=== PATIENT | female | born 1945 | race Hispanic/Latino ===

== ENCOUNTER 2019-06-05 05:15 | Observation (INO) | payer MEDICARE ==
[2019-06-04 14:18] LABS: BASOPHILS % 0.4 % (0.0-1.0); EOSINOPHILS # (AUTO) 0.4 (0.0-0.4); HEMATOCRIT 39.3 % (34.2-44.1); HEMOGLOBIN 12.7 g/dL (12.0-16.0); LYMPHOCYTES # (AUTO) 2.4 (1.0-3.2); LYMPHOCYTES % 24.4 % (18.0-39.1); MEAN CORPUSCULAR HGB CONC 32.3 g/dL (31-35); MEAN CORPUSCULAR VOLUME 86.8 fL (81-99); MONOCYTES # (AUTO) 0.6 (0.2-0.8); MONOCYTES % 5.9 % (4.4-11.3); NEUTROPHILS # (AUTO) 6.4 (2.1-6.9); NEUTROPHILS % 64.8 % (38.7-80.0); PLATELET COUNT 267 x10e3/uL (140-360); RED BLOOD COUNT 4.53 x10e6/uL (3.6-5.1); RED CELL DISTRIBUTION WIDTH 13.9 % (11.7-14.4)
[2019-06-04 14:29] LABS: INR 0.93
[2019-06-04 14:30] LABS: PARTIAL THROMBOPLASTIN TIME 33.1 seconds (23.8-35.5)
[2019-06-04 14:36] LABS: ANION GAP 14.9 mmol/L (8-16); CALCIUM 9.4 mg/dL (8.4-10.2); CREATININE, SERUM 1.13 mg/dL (0.57-1.11); POTASSIUM 4.9 mmol/L (3.5-5.1)
--- NOTE | 2019-06-04 15:31 | Diagnostic Imaging Report ---
EXAM: CHEST 2 VIEWS DATE: 06/04/2019 1:02 PM INDICATION: Cervical spondylosis COMPARISON: None FINDINGS: The trachea is midline. The lungs are symmetrically expanded without evidence for large focal consolidation, pneumothorax, or significant pleural effusion. The cardiomediastinal silhouette and pulmonary vasculature are within normal limits. No acute osseous abnormality is identified. The surrounding soft tissues are unremarkable. IMPRESSION: No acute cardiopulmonary process identified. Signed by: Dr. Mukesh Crowley MD on 06/04/2019 3:27 PM
[~2019-06-05] VITALS: Ht 167.6 cm; Wt 103.0 kg
[~2019-06-05 05:15] MED LIST: GLIMEPIRIDE2 MG PO; LANTUS 3ML100 UNITS/ SC; LOSARTAN HCTZ PO; METOPROLOL PO
[2019-06-05] MEDS ORDERED: CEFAZOLIN SOD 1 GM/NS 50ML 50 ML IV ONE (06:16)
--- OUTSIDE RECORDS SUMMARY | 2019-06-05 06:32 | XMS REPORT ---
Author Author [facility] Address Unknown Phone Unavailable Care Team Providers Care Garment Cutter Name Role Phone ROLANDO DELGADO Unavailable Unavailable Problems This patient has no known problems. Allergies, Adverse Reactions, Alerts This patient has no known allergies or adverse reactions. Medications This patient has no known medications. Results Test Description Test Time Test Comments Text Results Atomic Results Result Comments CHEST 2 VIEWS 2019-06-04 15:27:00 [place] [address] Patient Name: JERRELL CASANOVA MR #: [id number] : 1945 Age/Sex: 73/F Req #: [id number] Adm Physician: Ordered by: ROLANDO DELGADO MD Report #: [id number] Location: OR Room/Bed: Procedure: [id number] DX/CHEST 2 VIEWS Exam Date: Exam Time: REPORT STATUS: Signed EXAM: CHEST 2 VIEWS DATE: 06/04/2019 1:02 PM INDICATION: Cervical spondylosis COMPARISON: None FINDINGS: The trachea is midline. The lungs are symmetrically expanded without evidence for large focal consolidation, pneumothorax, or significant pleural effusion. The cardiomediastinal silhouette and pulmonary vasculature are within normal limits. No acute osseous abnormality is identified. The surrounding soft tissues are unremarkable. IMPRESSION: No acute cardiopulmonary process identified. Signed by: Dr. Mukesh Crowley MD on 06/04/2019 3:27 PM Dictated By: MUKESH CROWLEY MD [id number] Transcribed By: YASMANY on 06/04/19 1527 COPY TO: ROLANDO DELGADO MD
[2019-06-05] MEDS ORDERED: BUPIVACAINE 0.5%/EPI 30 ML SDV INJ ONE (06:33)
[2019-06-05] MEDS ORDERED: THROMBIN FOR SOLN 5,000 UNIT VIAL ONE (06:33)
[2019-06-05] MEDS ORDERED: BACITRACIN 50,000 UNIT VIAL ONE (06:33)
[2019-06-05] MEDS ORDERED: BUPIVACAINE HCL 0.5% INJ 30 ML VIAL INJ ONE (06:34)
[2019-06-05] MEDS ORDERED: ACETAMINOPHEN 1000 MG/100 ML 100 ML IV ONE (07:02)
[2019-06-05] MEDS ORDERED: IBUPROFEN 800 MG/200 ML IV ONE (07:02)
[2019-06-05] MEDS ORDERED: LIDOCAINE HCL (LTA) 4 ML SOLN ONE (07:02)
--- NOTE | 2019-06-05 07:20 | NUR ---
SPIRITUAL CARE - Pre-Surgery Assessment: Pt in bed. Pt's daughter at bedside. Pt reported supportive attention from family and friends. Intervention: I provided pastoral presence, hospitality, and sympathetic listening. I acquainted pt with availability of software analyst while hospitalized. Outcome: Pt expressed appreciation for visit. No need for follow up indicated at this time. CHARLEEN Lamaslain Spiritual Care Department O: [phone] Pager: [phone] ([phone] number calling from)
[2019-06-05] MEDS ORDERED: DEXTROSE 50% SYRINGE 50 ML IV PRN (09:00)
[2019-06-05] MEDS ORDERED: CARISOPRODOL 350 MG TAB PO PRN (09:00)
[2019-06-05] MEDS ORDERED: CEPACOL SORE THROAT LOZENGES PO PRN (09:00)
[2019-06-05] MEDS ORDERED: ACETAMINOPHEN 325 MG TAB PO PRN (09:00)
[2019-06-05] MEDS ORDERED: MAGNESIUM/ALUMINUM/SIMETHICONE 30 ML UDC PO PRN (09:00)
[2019-06-05] MEDS ORDERED: ONDANSETRON HCL INJ 2MG/ML 2ML 2 MG/ML VIAL IV PRN (09:00)
[2019-06-05] MEDS ORDERED: NON-FORMULARY MEDICATION ([Metoprolol] 50 MG) PO SCH (09:00)
[2019-06-05] MEDS ORDERED: OXYCODONE/ACETAMINOPHEN 5-325 1 EACH TABLET PO PRN (09:00)
[2019-06-05] MEDS ORDERED: HYDROMORPHONE 2MG/ML 2 MG/ML ML IV PRN ×2 (09:00)
[2019-06-05] MEDS ORDERED: PROMETHAZINE HCL (IM) 25 MG/ML VIAL IM PRN (09:00)
[2019-06-05] MEDS ORDERED: MORPHINE SULFATE 5 MG/ML VIAL IM PRN (09:00)
[2019-06-05] MEDS ORDERED: ZOLPIDEM TARTRATE 5 MG TAB PO PRN (09:00)
--- NOTE | 2019-06-05 10:09 | NUR ---
Recvd patient from PACU, AAOx3, Assisted her to bed, neck collar in place, surgical dressing on rt hand anterior neck is intact, not in any distress, keep monitoring , hr son at bed side
[2019-06-05] MEDS ORDERED: MORPHINE SULFATE INJ 4 MG/ML INJ 1ML IM PRN (10:15)
[2019-06-05 10:16] VITALS: BP 163/79
[2019-06-05 10:17] VITALS: BP 163/79
[2019-06-05] MEDS: LOSARTAN POTASSIUM 100 MG TAB PO SCH (10:56)
[2019-06-05] MEDS: GLIMEPIRIDE 2 MG TAB PO SCH ×2 (10:56→18:43)
[2019-06-05] MEDS: METOPROLOL TARTRATE 50 MG TAB PO SCH (10:57)
[2019-06-05 12:55] VITALS: BP 140/64
--- NOTE | 2019-06-05 14:35 | NUR ---
Assisted patient to use restroom, sitting up in recliner this time, family at bed side
[2019-06-05] MEDS: CEFAZOLIN SOD 1 GM/NS 50ML 50 ML IV SCH ×2 (15:14→21:43)
--- NOTE | 2019-06-05 15:22 | NUR ---
Order received for home health, spoke to patient and family, they are possibly looking for provider services as well. Booklet with [employer] given to family, also referral sent to Home care providers per patient's choice d/t need for some physical therapy at home as well.
--- NOTE | 2019-06-05 15:32 | Operative Report ---
DATE OF PROCEDURE: 06/05/2019 SURGEON: Toy Hoyos MD PREOPERATIVE DIAGNOSES: C5-C6 spondylosis with myelopathy and right carpal tunnel syndrome. POSTOPERATIVE DIAGNOSES: C5-C6 spondylosis with myelopathy and right carpal tunnel syndrome. PROCEDURES: 1. C5-C6 anterior cervical diskectomy and microsurgical osteophyte resection and allograft fusion, 33118. 2. Preparation of MTF tricortical allograft, 65411. 3. C5-C6 anterior cervical plating with Synthes ZPN plate, 86810. 4. Right carpal tunnel release. ANESTHESIA: General. INDICATIONS: The patient is a 73-year-old woman, who presents with cervical spondylosis with myelopathy and right-sided cord compression and superimposed severe right carpal tunnel syndrome. She was taken to the operating room for C5-C6 ACDF and right carpal tunnel release. DESCRIPTION OF PROCEDURE: After induction of general anesthesia, the patient was placed on the operating table in supine position. The right side of the neck was prepped and draped in sterile fashion. The fluoroscopic C-arm was positioned in cross-table lateral orientation. A transverse incision was created on the right side of neck, superimposed on the C5-C6 disk space as determined by fluoroscopy. The platysma was divided in line with the incision. A subplatysmal dissection was carried out and avascular plane and dissection was developed medially. Sternocleidomastoid muscle was followed medial to the carotid sheath to the anterior border of cervical spine. The deep cervical fascia was opened. The esophagus was retracted to the left. The attachments of longus colli muscles to the anterolateral aspects of vertebral bodies of C5 and C6 were divided. The anterior longitudinal ligament was resected. [place] posts were inserted into C5 and C6. [place] distractor was used to distract the disk space. The anterior annulus of the disk was incised with a #11 blade. The contents of the disks were thoroughly evacuated with angled curettes and pituitary rongeurs. The posterior osteophytes were meticulously drilled with a 2 mm cutting bur on a high-speed drill until they were completely removed. The posterior annulus of the disk, herniated disk material, and the posterior longitudinal ligament were resected via layer by layer until the dura was fully exposed and decompressed. The medial aspects of the uncinate processes were resected bilaterally to further expose any compressed origins of the corresponding nerve roots. After satisfactory decompression had been achieved, the endplates were prepared for fusion. The disk space was sized and found to be 8 mm in height. A piece of corticocancellous MTF allograft measuring 8 mm in thickness was selected and was prepared in saline and loaded onto a Synthes ZPN plate. The construct was inserted into the C5-C6 disk space under distraction and fluoroscopic guidance. The distraction was released and the distraction posts were removed. The plate was then screwed to the endplates of C5 and C6 with two pairs of 14 mm screws. All screws were locked and excellent construct was obtained. The wound was copiously irrigated with bacitracin solution. Meticulous hemostasis was secured. The platysma was closed with 3-0 Vicryl sutures. The skin was closed with 4-0 Monocryl sutures in subcuticular fashion. Steri-Strips and dressing were applied. The drapes were removed. The right arm was abducted over a hand table. The right hand, wrist and forearm were prepped and draped circumferentially in sterile fashion. A tourniquet was inflated over the upper arm to 250 mmHg. A small midline incision was created over the median and palmar crease of the hand just distal to the distal flexor crease of the wrist. The subcutaneous fat was divided. The transverse carpal ligament was identified and incised with a #15 C blade until the underlying median nerve came into view. As the mri assistant retracted the skin edges, the transverse carpal ligament was divided proximally and distally until the full length of ligament had been divided and the full length of the median nerve was decompressed within the carpal tunnel. The point of maximal compression of nerve appeared to be 2 cm distal to the distal flexor crease of the wrist where the ligament was at its thickest. More distally, the recurrent motor branch of the nerve was preserved within its fat pad. The wound was copiously irrigated with bacitracin solution. Meticulous hemostasis was secured. Retractor was removed. The subcutaneous layer was closed with 3-0 Vicryl suture. The skin was closed with 3-0 nylon suture in horizontal mattress fashion. The skin was infiltrated with plain lidocaine. The hand was wrapped after tourniquet had been deflated. The patient was awakened, extubated, and taken to the postanesthesia care unit in stable condition. No intraoperative complications were encountered. Estimated blood loss was minimal. Toy Hoyos MD PP/PAYAM /[id number]
[2019-06-05] MEDS: LACTATED RINGER'S 1,000 ML IV SCH (15:52)
--- NOTE | 2019-06-05 16:05 | NUR ---
Notified Dr Hoyos patient's BS 251, New order recvd to resume her home insulin which she taking Lanctus 50units in evening
[2019-06-05 16:27] VITALS: BP 157/68
[2019-06-05] MEDS ORDERED: INSULIN GLARGINE 100 UNITS/ML VIAL SQ SCH ×2 (17:00→21:00)
[2019-06-05] MEDS ORDERED: NON-FORMULARY MEDICATION (Insulin Glargine (Lantus 3ML Pen) 50 UNITS) SC SCH (17:00)
[2019-06-05] MEDS ORDERED: FENTANYL CITRATE/PF 100MCG/2 ML INJ ONE (18:39)
--- NOTE | 2019-06-05 19:03 | NUR ---
Received bedside report from day nurse. Patient resting in bed, no s/s of distress or c/o pain at this time. All safety measures in place. Family at bedside. Will continue to monitor.
[2019-06-05] MEDS ORDERED: NEOSTIGMINE 1 MG/ML 10ML VIAL ONE (19:31)
[2019-06-05] MEDS ORDERED: ONDANSETRON HCL INJ 2MG/ML 2ML 2 MG/ML VIAL ONE (19:31)
[2019-06-05] MEDS ORDERED: GLYCOPYRROLATE INJ 0.2 MG/ML VIAL ONE (19:31)
[2019-06-05] MEDS ORDERED: SEVOFLURANE INHAL SOLN 250 ML PEN BTL ONE (19:31)
[2019-06-05] MEDS ORDERED: PROPOFOL IV EMULSION 10 MG/ML 20 ML VIAL ONE (19:31)
[2019-06-05] MEDS ORDERED: DEXAMETHASONE SOD PHOS INJ 4 MG/ML VIAL ONE (19:31)
[2019-06-05] MEDS ORDERED: LIDOCAINE HCL 2% LOCAL INJ 5 ML SDV VIAL INJ ONE (19:31)
[2019-06-05] MEDS ORDERED: LIDOCAINE HCL 2% JELLY 5 ML TUBE ONE (19:31)
[2019-06-05] MEDS ORDERED: ROCURONIUM BROMIDE 10 MG/ML 5ML VIAL ONE (19:31)
[2019-06-05 20:00] VITALS: BP 168/77
[2019-06-05 21:46] VITALS: BP 168/77
[2019-06-06] VITALS: BP 168/74
[2019-06-06] MEDS: LACTATED RINGER'S 1,000 ML IV SCH (02:04)
[2019-06-06 04:00] VITALS: BP 154/64
[2019-06-06] MEDS: CEFAZOLIN SOD 1 GM/NS 50ML 50 ML IV SCH (05:28)
--- NOTE | 2019-06-06 06:09 | NUR ---
Patient leaving unit via wheelchair for x-ray. In stable condition, no s/s of distress at this time.
--- NOTE | 2019-06-06 06:27 | NUR ---
Patient returned to unit. In stable condition, no s/s of distress at this time. All safety measures in place. Family at bedside. Will continue to monitor.
[2019-06-06 06:31] VITALS: BP 142/68
--- NOTE | 2019-06-06 06:43 | Diagnostic Imaging Report ---
Exam: Cervical spine 2 views History: Neck pain Comparison: None. Findings: No fracture. Anterior cervical discectomy and fusion of C5-C6 with low profile interbody cage. Degenerative disc disease with posterior disc osteophyte complex at C4-C5. Impression: Anterior cervical discectomy and low profile fusion of C5-C6 Signed by: Dr. Josesito Spear M.D. on 06/06/2019 6:39 AM
--- NOTE | 2019-06-06 07:08 | NUR ---
Bedside report given to oncoming nurse. Patient resting in bed, no s/s of distress or c/o pain at this time. All safety measures in place.
[2019-06-06 08:12] VITALS: BP 165/75
[2019-06-06 08:16] VITALS: BP 165/75
[2019-06-06] MEDS: LOSARTAN POTASSIUM 100 MG TAB PO SCH (08:26)
[2019-06-06] MEDS: GLIMEPIRIDE 2 MG TAB PO SCH (08:26)
[2019-06-06] MEDS: METOPROLOL TARTRATE 50 MG TAB PO SCH (08:26)
[2019-06-06] MEDS ORDERED: NORCO 7.5-3251 EACH PO (09:24)
--- NOTE | 2019-06-06 10:24 | NUR ---
Patient discharged home. Discharge instruction given patient verbalized under standing , Dressing changed on anterior neck , no redness . no drainage and no swelling noted. dressing on rt hand is intact, patient aware about f/up appointments and incision site care, IV Canula removed with tip intact. no ss of infiltration noted, Not in any distress, Son at bed side taking her home, transported via wheelchair to [facility].
== END 2019-06-06 10:16 | disposition home or self-care (01) ==
LOC: OR 05:15 → PACU V 08:54 → MED/SURG 09:51
PROVIDERS: ADMIT Neurological Surgery; ATTEND Neurological Surgery
DX: M50.022 Cervical disc disorder at C5-C6 level with myelopathy (principal); G56.03 Carpal tunnel syndrome, bilateral upper limbs; M19.90 Unspecified osteoarthritis, unspecified site; I10 Essential (primary) hypertension; E66.9 Obesity, unspecified; Z68.36 Body mass index [BMI] 36.0-36.9, adult; E11.9 Type 2 diabetes mellitus without complications; E03.9 Hypothyroidism, unspecified; Z01.810 Encounter for preprocedural cardiovascular examination; Z01.812 Encounter for preprocedural laboratory examination; Z01.811 Encounter for preprocedural respiratory examination; Z79.4 Long term (current) use of insulin
CPT/HCPCS: 20931; 22551; 22845; 36415 ×3; 64721; 71046; 72040; 80048; 82948 ×2; 85025; 85610; 85730; 86850; 86900; 88304; 93005; C1713 ×2; C9359; G0378 ×2; J0131; J0690 ×2; J1100; J1815; J2001 ×2; J2405; J2704; J2710; J3010; J7121 ×2; 77003